=== PATIENT | male | born 1990 ===

== ENCOUNTER 2021-03-31 10:21 | Emergency (ER) | payer OTHER ==
[~2021-03-31] VITALS: Ht 172.7 cm; Wt 76.2 kg
== END 2021-03-31 13:40 | disposition home or self-care (01) ==
LOC: ED 10:21
DX: S05.91XA Unspecified injury of right eye and orbit, initial encounter (principal); W22.8XXA Striking against or struck by other objects, initial encounter
CPT/HCPCS: 99283